=== PATIENT | female | born 1940 | race Hispanic/Latino ===

== ENCOUNTER → 2024-02-27 06:28 | Day surgery (SDC) | payer MEDICARE, SELFPAY | LOC: GI 06:28 | PROVIDERS: ATTENDING PHYSICIAN Internal Medicine Gastroenterology | DX: Z12.11 Encounter for screening for malignant neoplasm of colon (principal); R19.5 Other fecal abnormalities; K57.30 Diverticulosis of large intestine without perforation or abscess without bleeding; K64.0 First degree hemorrhoids; D12.3 Benign neoplasm of transverse colon; D12.0 Benign neoplasm of cecum | CPT/HCPCS: 45385; 45381; 45380; 88305 ==

== ENCOUNTER → 2024-08-27 06:26 | Day surgery (SDC) | payer MEDICARE, SELFPAY | LOC: GI 06:26 | PROVIDERS: ATTENDING PHYSICIAN Internal Medicine Gastroenterology | DX: Z09 Encounter for follow-up examination after completed treatment for conditions other than malignant neoplasm (principal); Z86.0100 Personal history of colon polyps, unspecified; K57.30 Diverticulosis of large intestine without perforation or abscess without bleeding; K64.0 First degree hemorrhoids; D12.0 Benign neoplasm of cecum; Z98.890 Other specified postprocedural states | CPT/HCPCS: 45385; 45380; 88305 ==

== ENCOUNTER → 2024-10-01 09:59 | Outpatient (REF) | payer MEDICARE, SELFPAY | LOC: WDC 09:59 | PROVIDERS: ATTENDING PHYSICIAN Internal Medicine | DX: Z78.0 Asymptomatic menopausal state (principal); Z12.31 Encounter for screening mammogram for malignant neoplasm of breast | CPT/HCPCS: 77063; 77067; 77080 ==